=== PATIENT | female | born 1945 | race Hispanic/Latino ===

== ENCOUNTER → 2017-09-28 | Outpatient (CLI) | payer OTHER ==
[~2017-09-28] MED LIST: CLON1PAT13 PO; GLIP10TA9 PO; HYDR25TA PO; LISI40TA4 PO; METO-391 PO; PRAV20TA4 PO
== END | disposition home or self-care (01) ==
LOC: RAH 09:22
PROVIDERS: ATTEND Family Medicine
DX: Z12.31 Encounter for screening mammogram for malignant neoplasm of breast (principal)
CPT/HCPCS: 77067

== ENCOUNTER → 2018-09-29 | Outpatient (CLI) | payer OTHER | END | disposition home or self-care (01) | LOC: RAH 10:35 | PROVIDERS: ATTEND Family Medicine | DX: Z12.31 Encounter for screening mammogram for malignant neoplasm of breast (principal) | CPT/HCPCS: 77067 ==

== ENCOUNTER → 2019-10-04 | Outpatient (CLI) | payer OTHER | END | disposition home or self-care (01) | LOC: RAH 08:47 | PROVIDERS: ATTEND Family Medicine | DX: Z12.31 Encounter for screening mammogram for malignant neoplasm of breast (principal) ==

== ENCOUNTER → 2022-02-10 | Outpatient (CLI) | payer OTHER ==
[~2022-02-10] MED LIST changes: -LISI40TA4 PO; +LISI40TA9 PO
== END | disposition home or self-care (01) ==
LOC: RAH 15:42
PROVIDERS: ATTEND Orthopaedic Surgery
DX: M17.12 Unilateral primary osteoarthritis, left knee (principal); M85.80 Other specified disorders of bone density and structure, unspecified site; M25.462 Effusion, left knee
CPT/HCPCS: 73700

== ENCOUNTER 2022-02-18 07:31 | Observation (INO) | payer OTHER ==
[2022-02-13 10:02] LABS: BASOPHILS % (AUTO) 0.7 % (0.0-5.0); EOSINOPHILS % (AUTO) 2.9 % (0.0-8.0); HEMATOCRIT 38.7 % (36-48); LYMPHOCYTES % (AUTO) 26.9 % (21.0-51.0); MEAN CORPUSCULAR HGB CONC 34.1 g/dL (32.0-36.0); MONOCYTES % (AUTO) 12.3 % (3.0-13.0); NEUTROPHILS % (AUTO) 56.9 % (40.0-77.0); PLATELET COUNT (AUTO) 245 K/uL (130-400); RED BLOOD CELL COUNT(AUTO) 4.72 MIL/uL (4.00-5.50); RED CELL DISTRIBUTION WIDTH 13.1 % (11.0-15.5); WHITE BLOOD COUNT (AUTO) 5.8 K/uL (4.8-10.8)
[2022-02-13 10:09] LABS: CREATININE 0.9 mg/dL (0.5-1.5); POTASSIUM 3.5 mmol/L (3.5-5.1)
[2022-02-13 10:13] LABS: INR 0.95 (0.85-1.15); PROTHROMBIN TIME 10.4 SEC (9.6-11.6)
[2022-02-13 10:15] LABS: PARTIAL THROMBOPLASTIN TIME 28.6 SEC (26.3-35.5)
[2022-02-17 13:32] VITALS: BP 188/87
[~2022-02-18] VITALS: Ht 157.5 cm; Wt 75.7 kg
[2022-02-18] VITALS (24 sets, daily range): BP systolic 109–130; BP diastolic 50–65
[2022-02-18] MEDS: CEFAZOLIN SODIUM 1 GM VIAL IVP SCH ×3 (06:00→19:38)
[~2022-02-18 07:31] MED LIST changes: +CLON0.1T PO; -CLON1PAT13 PO; +HYDR-4068 PO; +LACTATED RINGERS 1000ML 1,000 ML IV SCH; +TRANEXAMIC ACID 1000MG/10ML IJ SCH
[2022-02-18] MEDS ORDERED: 0.9%NACL 1000ML 1,000 ML IV ONE (08:01)
[2022-02-18] MEDS ORDERED: ROPIVACAINE 0.5% 5MG/ML 30ML IJ ONE (10:45)
[2022-02-18] MEDS ORDERED: TRANEXAMIC ACID 1000MG/10ML ONE (10:46)
[2022-02-18] MEDS ORDERED: SUCCINYLCHOLINE 200MG/10ML SYR ONE (12:32)
[2022-02-18] MEDS ORDERED: LIDOCAINE PF 100MG/5ML (2%) SYRINGE 5ML ONE (12:32)
[2022-02-18] MEDS ORDERED: ONDANSETRON 4MG INJ ONE (12:33)
[2022-02-18] MEDS ORDERED: DEXAMETHASONE SOD PHOSPHATE 10MG/ML 1ML VIAL ONE (12:33)
[2022-02-18] MEDS ORDERED: GLYCOPYRROLATE 1 MG/5 ML SYRINGE ONE (12:34)
[2022-02-18] MEDS ORDERED: MIDAZOLAM HCL 1 MG/ML 2ML VIAL ONE (12:34)
[2022-02-18] MEDS ORDERED: NEOSTIGMINE 5MG/5ML SYR IV ONE (12:34)
[2022-02-18] MEDS ORDERED: PROPOFOL 10 MG/ML 20ML VIAL IV ONE (12:34)
[2022-02-18] MEDS ORDERED: ROCURONIUM 10MG/1ML SYR 10 MG/ML ML ONE (12:34)
[2022-02-18] MEDS ORDERED: FENTANYL CITRATE PF 50 MCG/1 ML 2ML VIAL ONE ×2 (12:34→15:09)
[2022-02-18] MEDS ORDERED: EPHEDRINE SULFATE 50 MG/ML AMPULE ONE (12:54)
[2022-02-18] MEDS ORDERED: POTASSIUM CHLORIDE 10% ELIXIR 20 MEQ/15 ML UDCUP PO PRN (13:00)
[2022-02-18] MEDS ORDERED: POTASSIUM CHLORIDE 20MEQ/100ML 100 ML IV PRN (13:00)
[2022-02-18] MEDS ORDERED: MORPHINE 4 MG SYG IVP PRN (13:00)
[2022-02-18] MEDS ORDERED: ONDANSETRON 4MG INJ IVP PRN (13:00)
[2022-02-18] MEDS ORDERED: HYDROCODONE/ACETAMINOPHEN 5/325 MG TAB PO PRN (13:00)
[2022-02-18] MEDS: 0.9%NACL 1000ML 1,000 ML IV SCH ×2 (13:00→22:51)
[2022-02-18] MEDS ORDERED: LIDOCAINE HCL-MPF 1% 2ML VIAL IV PRN (13:00)
[2022-02-18] MEDS ORDERED: FENTANYL CITRATE PF 50 MCG/1 ML 5ML AMP IV ONE (13:12)
[2022-02-18] MEDS ORDERED: MEPERIDINE-PF 25 MG/ML SYG ONE (15:34)
[2022-02-18] MEDS: ACETAMINOPHEN 1,000 MG/100 ML VIAL IV SCH ×2 (15:48→19:38)
[2022-02-18] MEDS ORDERED: IBUPROFEN 800MG + NS 250ML IV SCH (16:00)
[2022-02-18] MEDS: FAMOTIDINE 20MG TAB PO SCH (20:28)
[2022-02-18] MEDS: ASPIRIN 81 MG EC TAB PO SCH (20:29)
[2022-02-18] MEDS ORDERED: HYDROCHLOROTHIAZIDE 25 MG TABLET PO SCH (21:00)
[2022-02-18] MEDS ORDERED: METOPROLOL SUCCINATE 50 MG TAB.SR.24H PO SCH (21:00)
[2022-02-18] MEDS: LISINOPRIL 40 MG TABLET PO SCH (21:00)
[2022-02-18] MEDS: HYDROCODONE/ACETAMINOPHEN 10/325 MG TAB PO PRN (23:01)
[2022-02-19] MEDS: CEFAZOLIN SODIUM 1 GM VIAL IVP SCH (02:01)
[2022-02-19] MEDS ORDERED: IBUPROFEN 800MG + NS 250ML IV SCH (03:00)
[2022-02-19 05:20] VITALS: BP 118/63
[2022-02-19 05:39] LABS: HEMATOCRIT 33.6 % (36-48); MEAN CORPUSCULAR HGB CONC 33.9 g/dL (32.0-36.0); MEAN CORPUSCULAR VOLUME 82.6 fL (79-99); RED BLOOD CELL COUNT(AUTO) 4.07 MIL/uL (4.00-5.50); RED CELL DISTRIBUTION WIDTH 13.1 % (11.0-15.5); WHITE BLOOD COUNT (AUTO) 12.2 K/uL (4.8-10.8)
[2022-02-19 05:51] LABS: CREATININE 1.3 mg/dL (0.5-1.5); POTASSIUM 3.4 mmol/L (3.5-5.1)
[2022-02-19] MEDS ORDERED: ACETAMINOPHEN 1,000 MG/100 ML VIAL IV SCH ×2 (06:00→08:30)
[2022-02-19] MEDS ORDERED: PHARMACY COMMUNICATION MISC SCH (06:00)
[2022-02-19] MEDS: KCL 20 MEQ ERTAB PO PRN ×2 (06:49→08:06)
[2022-02-19 07:30] VITALS: BP 144/60
[2022-02-19] MEDS: CALDOLOR 800MG+NS 250ML 250 ML IV SCH ×2 (08:06→15:30)
[2022-02-19] MEDS: ASPIRIN 81 MG EC TAB PO SCH (08:07)
[2022-02-19] MEDS: FAMOTIDINE 20MG TAB PO SCH (08:07)
[2022-02-19] MEDS: LISINOPRIL 40 MG TABLET PO SCH (08:07)
[2022-02-19] MEDS: HYDROCODONE/ACETAMINOPHEN 10/325 MG TAB PO PRN ×2 (08:07→16:16)
[2022-02-19] MEDS: 0.9%NACL 1000ML 1,000 ML IV SCH (08:08)
[2022-02-19] MEDS ORDERED: CLONIDINE HCL 0.1 MG TABLET PO SCH (09:00)
[2022-02-19] MEDS ORDERED: POLYETHYLENE GLYCOL 3350 17 GM POWD.PACK PO SCH (09:00)
[2022-02-19] MEDS ORDERED: GLIPIZIDE 5 MG TABLET PO SCH (09:00)
[2022-02-21] MEDS ORDERED: BISACODYL 10 MG SUPP.RECT RC PRN (13:00)
== END 2022-02-19 18:00 | disposition home or self-care (01) ==
LOC: DAH 07:31 → DAHIP 07:33 → 4DH 16:45
PROVIDERS: ADMIT Orthopaedic Surgery; ATTEND Orthopaedic Surgery
DX: M17.12 Unilateral primary osteoarthritis, left knee (principal); Z20.822 Contact with and (suspected) exposure to COVID-19; G89.29 Other chronic pain; M25.562 Pain in left knee; I10 Essential (primary) hypertension; Z79.899 Other long term (current) drug therapy; Z98.890 Other specified postprocedural states
CPT/HCPCS: 27447; S2900; 36415; 64447; 76942; 80048; 82948; 85025; 85027; 85610; 85730; 87426; 96365; 96366; 96375; 96376; 97039; G0378; J0330; J0690; J1100; J1741; J2001; J2175; J2250; J2405; J2704; J2710; J2795; J3010; J3490; J7030; J7120

== ENCOUNTER → 2022-10-08 | Outpatient (CLI) | payer OTHER ==
[~2022-10-08] MED LIST changes: -LACTATED RINGERS 1000ML 1,000 ML IV SCH; -TRANEXAMIC ACID 1000MG/10ML IJ SCH
== END | disposition home or self-care (01) ==
LOC: RAH 10:25
PROVIDERS: ATTEND Family Medicine
DX: Z12.31 Encounter for screening mammogram for malignant neoplasm of breast (principal)
CPT/HCPCS: 77067

== ENCOUNTER 2022-11-02 17:03 | Inpatient (IN) | payer OTHER ==
[~2022-11-02] VITALS: Ht 157.5 cm; Wt 74.4 kg
[2022-11-02 17:44] LABS: BASOPHILS % (AUTO) 0.3 % (0.0-5.0); EOSINOPHILS % (AUTO) 0.3 % (0.0-8.0); HEMATOCRIT 41.6 % (36-48); LYMPHOCYTES % (AUTO) 13.2 % (21.0-51.0); MEAN CORPUSCULAR HEMOGLOBIN 28.4 pg (27.0-33.0); MEAN CORPUSCULAR HGB CONC 34.4 g/dL (32.0-36.0); MEAN CORPUSCULAR VOLUME 82.5 fL (79-99); MONOCYTES % (AUTO) 6.6 % (3.0-13.0); NEUTROPHILS % (AUTO) 79.1 % (40.0-77.0); PLATELET COUNT (AUTO) 275 K/uL (130-400); RED BLOOD CELL COUNT(AUTO) 5.04 MIL/uL (4.00-5.50); RED CELL DISTRIBUTION WIDTH 12.8 % (11.0-15.5); WHITE BLOOD COUNT (AUTO) 7.9 K/uL (4.8-10.8)
[2022-11-02 17:57] LABS: CREATININE 0.9 mg/dL (0.5-1.5); POTASSIUM 3.3 mmol/L (3.5-5.1)
[2022-11-02] MEDS ORDERED: 0.9%NACL 1000ML 1,000 ML IV ONE (18:00)
[2022-11-02] MEDS ORDERED: ONDANSETRON 4MG INJ IVP ONE (18:00)
[2022-11-02 18:06] LABS: ALBUMIN 3.9 g/dL (3.5-5.0); MAGNESIUM 1.3 mg/dL (1.80-2.40); TOTAL PROTEIN, SERUM 7.9 g/dL (6.0-8.3)
[2022-11-02 18:14] LABS: B-TYPE NATRIURETIC PEPTIDE 93 pg/mL (0-100)
[2022-11-02] MEDS ORDERED: ASPIRIN 81MG CHEW TAB PO ONE (18:30)
[2022-11-02] MEDS ORDERED: KCL 20 MEQ ERTAB PO ONE (19:30)
[2022-11-02] MEDS ORDERED: HYDROCODONE/ACETAMINOPHEN 5/325 MG TAB PO PRN (20:30)
[2022-11-02] MEDS ORDERED: HYDRALAZINE 20MG/ML VIAL IV PRN (20:30)
[2022-11-02] MEDS ORDERED: MORPHINE 2 MG SYG IVP PRN (20:30)
[2022-11-02] MEDS ORDERED: GUAIFENESIN-DM 200/20 MG 10 ML PO PRN (20:30)
[2022-11-02] MEDS ORDERED: NITROGLYCERIN 0.4 MG SL TAB SL PRN (20:30)
[2022-11-02] MEDS ORDERED: DIPHENHYDRAMINE HCL 25 MG CAPSULE PO PRN (20:30)
[2022-11-02] MEDS ORDERED: KETOROLAC 10 MG TABLET PO PRN (20:30)
[2022-11-02] MEDS ORDERED: LACTULOSE 20 GM/30 ML UDCUP PO PRN (20:30)
[2022-11-02] MEDS ORDERED: MAG/ALUM/SIMETH 30 ML UDCUP PO PRN (20:30)
[2022-11-02] MEDS ORDERED: ZOLPIDEM TARTRATE 5 MG TAB PO PRN (20:30)
[2022-11-02] MEDS ORDERED: ONDANSETRON 4MG INJ IV PRN (20:30)
[2022-11-02] MEDS ORDERED: ACETAMINOPHEN 325 MG TAB PO PRN ×2 (20:30)
[2022-11-02 20:37] LABS: APPEARANCE,URINE CLOUDY (CLEAR); BILIRUBIN,URINE NEGATIVE (NEGATIVE); COLOR,URINE YELLOW (YELLOW); GLUCOSE, URINE (UA) 30 mg/dL (NEGATIVE); KETONES,URINE 5 mg/dL (NEGATIVE); LEUKOCYTE ESTERASE ,URINE 75 Leu/uL (NEGATIVE); NITRATE,URINE NEGATIVE (NEGATIVE); OCCULT BLOOD,URINE NEGATIVE (NEGATIVE); PROTEIN,URINE 300 mg/dL (NEGATIVE); UROBILINOGEN,URINE 0.2 mg/dL (0.2-1.0)
[2022-11-02 20:43] LABS: BACTERIA,URINE FEW /HPF (None Seen); MUCUS,URINE RARE LPF (None Seen); SQUAMOUS EPITHELIAL CELL,UR RARE /HPF (0-2); WBC,URINE 51-100 /HPF (0-1)
[2022-11-02] MEDS ORDERED: HEPARIN 5,000 UNIT VIAL SQ SCH (21:00)
[2022-11-02] MEDS ORDERED: FAMOTIDINE 20MG VIAL IV SCH (21:00)
[2022-11-02] MEDS: 0.9%NACL 1000ML 1,000 ML IV SCH (21:20)
[2022-11-02] MEDS: FAMOTIDINE 20MG VIAL IV SCH (21:20)
[2022-11-02] MEDS: IPRATROPIUM 0.5 MG/2.5 ML INH IH SCH (23:10)
[2022-11-02] MEDS: ALBUTEROL 0.083% 2.5 MG/3 ML INH IH SCH (23:10)
[2022-11-02] MEDS ORDERED: DILTIAZEM 125 MG/25 ML INJ IV ONE (23:58)
[2022-11-03] MEDS ORDERED: DILTIAZEM 25MG INJ IVP STA ×2 (00:03→01:37)
[2022-11-03] MEDS ORDERED: AMIODARONE 900MG VIAL 900 MG in DEXTROSE 5%-WATER 500 ML IV SCH (00:30)
[2022-11-03] MEDS ORDERED: DILTIAZEM 50MG VIAL IV ONE (00:30)
[2022-11-03] MEDS ORDERED: DILTIAZEM 125 MG/25 ML INJ 125 MG in 0.9%NACL 100ML 100 ML IV SCH (00:30)
[2022-11-03] MEDS ORDERED: AMIODARONE 150MG VIAL 150 MG in DEXTROSE 5%-WATER 50 ML IV ONE (00:30)
[2022-11-03] MEDS ORDERED: AMIODARONE 150MG VIAL ONE (00:44)
[2022-11-03] MEDS ORDERED: AMIODARONE 900MG VIAL IV ONE ×2 (00:45→02:18)
[2022-11-03] MEDS ORDERED: AMIODARONE 900MG VIAL 540 MG in DEXTROSE 5%-WATER 300 ML IV STA (01:16)
[2022-11-03 01:22] LABS: INR 0.93 (0.85-1.15); PROTHROMBIN TIME 10.8 SEC (9.6-11.6)
[2022-11-03 01:24] LABS: PARTIAL THROMBOPLASTIN TIME 26.9 SEC (26.3-35.5)
[2022-11-03] MEDS: HEPARIN 25,000 UNITS/250ML D5W 250 ML IV SCH ×2 (02:00→19:19)
[2022-11-03] MEDS ORDERED: MAGNESIUM 2GM PREMIX 50ML 50 ML IV SCH (04:00)
[2022-11-03] MEDS: CEFTRIAXONE 2GM VIAL IVPB SCH (04:14)
[2022-11-03] MEDS: IPRATROPIUM 0.5 MG/2.5 ML INH IH SCH ×5 (04:30→23:09)
[2022-11-03] MEDS: DILTIAZEM 60MG TAB PO SCH ×4 (06:00→23:57)
[2022-11-03 06:48] LABS: BASOPHILS % (AUTO) 0.4 % (0.0-5.0); EOSINOPHILS % (AUTO) 0.8 % (0.0-8.0); HEMATOCRIT 39.6 % (36-48); LYMPHOCYTES % (AUTO) 18.3 % (21.0-51.0); MEAN CORPUSCULAR HEMOGLOBIN 28.1 pg (27.0-33.0); MEAN CORPUSCULAR HGB CONC 33.6 g/dL (32.0-36.0); MEAN CORPUSCULAR VOLUME 83.7 fL (79-99); MONOCYTES % (AUTO) 11.9 % (3.0-13.0); NEUTROPHILS % (AUTO) 68.2 % (40.0-77.0); PLATELET COUNT (AUTO) 238 K/uL (130-400); RED BLOOD CELL COUNT(AUTO) 4.73 MIL/uL (4.00-5.50); WHITE BLOOD COUNT (AUTO) 9.6 K/uL (4.8-10.8)
[2022-11-03 06:57] LABS: ALBUMIN 3.4 g/dL (3.5-5.0); INR 0.94 (0.85-1.15); MAGNESIUM 1.5 mg/dL (1.80-2.40); POTASSIUM 3.8 mmol/L (3.5-5.1); TOTAL PROTEIN, SERUM 7.2 g/dL (6.0-8.3)
[2022-11-03 06:59] LABS: PARTIAL THROMBOPLASTIN TIME 75.6 SEC (26.3-35.5)
[2022-11-03 07:02] LABS: HEMOGLOBIN A1C 6.3 % (4.0-6.0)
[2022-11-03] MEDS: ALBUTEROL 0.083% 2.5 MG/3 ML INH IH SCH ×4 (07:26→23:09)
[2022-11-03] MEDS: 0.9%NACL 1000ML 1,000 ML IV SCH ×2 (08:16→16:54)
[2022-11-03] MEDS: PANTOPRAZOLE 40 MG/VIAL IVP SCH (08:16)
[2022-11-03 12:26] LABS: INR 0.95 (0.85-1.15); PROTHROMBIN TIME 11.1 SEC (9.6-11.6)
[2022-11-03 12:30] VITALS: BP 162/69
[2022-11-03 13:32] LABS: PARTIAL THROMBOPLASTIN TIME 110.2 SEC (26.3-35.5)
[2022-11-03 16:00] VITALS: BP 159/75
[2022-11-03 20:00] VITALS: BP 176/66
[2022-11-03] MEDS: FAMOTIDINE 20MG VIAL IV SCH (21:11)
[2022-11-04] VITALS: BP 173/73
[2022-11-04] MEDS: 0.9%NACL 1000ML 1,000 ML IV SCH (02:28)
[2022-11-04 03:40] VITALS: BP 149/73
[2022-11-04] MEDS: CEFTRIAXONE 2GM VIAL IVPB SCH (03:42)
[2022-11-04] MEDS: ALBUTEROL 0.083% 2.5 MG/3 ML INH IH SCH ×2 (06:19→11:06)
[2022-11-04] MEDS: IPRATROPIUM 0.5 MG/2.5 ML INH IH SCH ×2 (06:19→11:06)
[2022-11-04] MEDS: DILTIAZEM 60MG TAB PO SCH (06:24)
[2022-11-04 07:29] LABS: HEMATOCRIT 37.7 % (36-48); MEAN CORPUSCULAR HEMOGLOBIN 28.1 pg (27.0-33.0); MEAN CORPUSCULAR HGB CONC 33.2 g/dL (32.0-36.0); MEAN CORPUSCULAR VOLUME 84.7 fL (79-99); RED BLOOD CELL COUNT(AUTO) 4.45 MIL/uL (4.00-5.50); RED CELL DISTRIBUTION WIDTH 13.2 % (11.0-15.5); WHITE BLOOD COUNT (AUTO) 6.5 K/uL (4.8-10.8)
[2022-11-04 07:57] LABS: CREATININE 0.8 mg/dL (0.5-1.5); POTASSIUM 3.2 mmol/L (3.5-5.1)
[2022-11-04 08:00] VITALS: BP 141/62
[2022-11-04] MEDS ORDERED: LISINOPRIL 40 MG TABLET PO SCH (09:00)
[2022-11-04] MEDS ORDERED: CLONIDINE HCL 0.1 MG TABLET PO SCH (09:00)
[2022-11-04] MEDS: PANTOPRAZOLE 40 MG/VIAL IVP SCH (09:03)
[2022-11-04 12:00] VITALS: BP 122/60
[2022-11-04] MEDS ORDERED: CEFD300C3 PO (13:21)
[2022-11-04] MEDS ORDERED: POTASSIUM CHLORIDE 20MEQ/100ML 100 ML IV PRN (13:30)
[2022-11-04] MEDS ORDERED: POTASSIUM CHLORIDE 10% ELIXIR 20 MEQ/15 ML UDCUP PO PRN (13:30)
[2022-11-04] MEDS: KCL 20 MEQ ERTAB PO PRN ×2 (14:04→15:54)
[2022-11-04] MEDS ORDERED: IPRATROPIUM 0.5 MG/2.5 ML INH IH PRN (15:30)
[2022-11-04] MEDS ORDERED: ALBUTEROL 0.083% 2.5 MG/3 ML INH IH PRN (15:30)
[2022-11-04 16:00] VITALS: BP 135/70
[2022-11-04] MEDS ORDERED: ENOXAPARIN SODIUM 40 MG/0.4 ML SYRINGE SQ SCH (16:00)
[2022-11-04] MEDS ORDERED: HYDROCHLOROTHIAZIDE 25 MG TABLET PO SCH (21:00)
[2022-11-04] MEDS ORDERED: METOPROLOL SUCCINATE 50 MG TAB.SR.24H PO SCH (21:00)
[2022-11-04] MEDS ORDERED: ATORVASTATIN 10 MG TABLET PO SCH (21:00)
[2022-11-04] MEDS ORDERED: NON-FORMULARY MEDICATION 1 EACH (Pravastatin Sodium 40 MG) PO SCH (21:00)
== END 2022-11-04 16:35 | disposition home or self-care (01) | DRG 641 ==
LOC: EDH 17:03 → OBSVTOIN 20:03 → EDHIP 20:03 → 2AH 11-03 00:28 → EDHIP 11-03 01:37 → 3DH 11-03 13:00
PROVIDERS: ADMIT Internal Medicine Critical Care Medicine; ATTEND Internal Medicine Critical Care Medicine
DX: E86.0 Dehydration (principal); N30.00 Acute cystitis without hematuria; Z20.822 Contact with and (suspected) exposure to COVID-19; E87.1 Hypo-osmolality and hyponatremia; R77.8 Other specified abnormalities of plasma proteins; E87.6 Hypokalemia; E11.9 Type 2 diabetes mellitus without complications; I48.91 Unspecified atrial fibrillation; I11.9 Hypertensive heart disease without heart failure; E78.00 Pure hypercholesterolemia, unspecified; M19.90 Unspecified osteoarthritis, unspecified site; H53.8 Other visual disturbances; Z82.49 Family history of ischemic heart disease and other diseases of the circulatory system; Z90.710 Acquired absence of both cervix and uterus; Z79.899 Other long term (current) drug therapy; Z79.4 Long term (current) use of insulin
CPT/HCPCS: 36415; 70450; 71045; 80048; 80053; 81001; 82140; 82550; 83036; 83605; 83735; 83880; 84145; 84484; 85025; 85027; 85610; 85730; 87040; 87077; 87088; 87186; 87635; 87804; 87880; 93005; 93306; 93356; 93880; 94640; 94664; C9113; C9803; G0378; J0282; J0696; J1644; J2405; J3475; J3490; J7030; J7060